=== PATIENT | female | born 1970 ===

== ENCOUNTER 2017-03-15 23:55 | Observation (INO) | payer SELFPAY, OTHER ==
[2017-03-15 23:55] VITALS: BMI 26.9
[2017-03-16 00:05] VITALS: BP 138/72; PULSE 72; RESP 18; TEMP 98; O2SAT 99
[2017-03-16] MEDS ORDERED: Iohexol 240 (50 ml) PO STA (00:32)
--- NOTE | 2017-03-16 00:40 | ED PDOC ---
HPI: Abdomen Time Seen by Provider: 03/16/17 00:08 Chief Complaint (Nursing): Abdominal Pain Chief Complaint (Provider): Abdominal pain History Per: Patient History/Exam Limitations: no limitations Onset/Duration Of Symptoms: Days (6), Waxing/Waning Current Symptoms Are (Timing): Intermittent Episodes Location Of Pain/Discomfort: Periumbilical Quality Of Discomfort: Cramping, "Pain" Associated Symptoms: Diarrhea. denies: Fever, Chills, Nausea, Vomiting Alleviating Factors: Other (Bowel movement) Last Bowel Movement: Today Additional Complaint(s): 46 y/o F with PMH including breast CA (s/p lumpectomy) presents to ED with 1 week of intermittent abdominal pain. Patient reports pain started gradually 1 week ago and has been intermittent since then. Pain is periumbilical, "cramping, " variable in intensity ranging from 0-10/10, non-radiating. Pain episodes last from seconds to minutes and have been associated with nausea and non-bloody diarrhea. Alleviated after passing BM. No aggravating factors identified. Patient denies associated fevers, chills, chest pain, vomiting, loss of appetite , dizziness or dysuria. PMD: Dr Johnson Abnormal Vaginal Bleeding: No Last Menstral Period: 2014 Past Medical History Vital Signs: Last Vital Signs Temp 98.0 F 03/16/17 00:01 Pulse 72 03/16/17 00:01 Resp 18 03/16/17 00:01 BP 138/72 03/16/17 00:01 Pulse Ox 99 03/16/17 05:03 - Medical History PMH: Denies: Chronic Kidney Disease Other PMH: Breast CA (left breast) - Family History Family History: States: Unknown Family Hx - Home Medications Home Medications: Ambulatory Orders Medication Instructions Recorded No Known Home Med 11/06/16 - Allergies Allergies/Adverse Reactions: Allergies Allergy/AdvReac Type Severity Reaction Status Date / Time No Known Allergies Allergy Verified 07/07/16 13:15 Review of Systems ROS Statement: Except As Marked, All Systems Reviewed And Found Negative Physical Exam - Reviewed Vital Signs Reviewed: Yes - Physical Exam Appears: Positive for: No Acute Distress Head Exam: Positive for: ATRAUMATIC, NORMAL INSPECTION, NORMOCEPHALIC Skin: Positive for: Normal Color, Warm, Dry Eye Exam: Positive for: Normal appearance, EOMI, PERRL ENT: Positive for: Other (Mucous membranes moist). Negative for: Pharyngeal Erythema Cardiovascular/Chest: Positive for: Regular Rate, Rhythm. Negative for: Edema, Murmur Respiratory: Positive for: Normal Breath Sounds. Negative for: Crackles, Rales , Wheezing, Respiratory Distress Pulses-Radial (L): 2+ Pulses-Radial (R): 2+ Gastrointestinal/Abdominal: Positive for: Bowel Sounds (Normal), Soft, Tenderness (Shala-umbilical tenderness), Other (Sinha's negative). Negative for : Distended, Guarding, Rebound Back: Negative for: L CVA Tenderness, R CVA Tenderness Extremity: Positive for: Capillary Refill (<2s). Negative for: Tenderness, Pedal Edema, Calf Tenderness Neurologic/Psych: Positive for: Alert, Oriented - Laboratory Results Result Diagrams: 03/16/17 00:59 03/16/17 00:59 - ECG O2 Sat by Pulse Oximetry: 99 - Progress ED Course And Treament: Patient pain free during re-assessment. CBC reveals no leukocytosis. CMP detects elevated LFTs. CT abdomen W/ IV contrast does not detect any acute findings, however possible mesenteric adenitis is present. Condition: Improved Disposition - Clinical Impression Clinical Impression: Viral gastroenteritis, Elevated LFTs - Patient ED Disposition Is Patient to be Admitted: No Counseled Patient/Family Regarding: Studies Performed, Need For Followup - Disposition Disposition: Routine/Home Disposition Time: 05:00 Condition: GOOD
[2017-03-16 01:13] LABS: BASO % 0.3 % (0.0-2.0); EOS # 0.1 K/uL (0.0-0.7); EOS % 2.2 % (0.0-4.0); HEMATOCRIT 35.7 % (34.0-47.0); LYMPH # 1.7 K/uL (1.0-4.3); LYMPH % 39.4 % (20.0-40.0); MEAN CELL VOLUME 92.4 fl (81.0-99.0); MEAN CORPUSCULAR HEMOGLOBIN 31.2 pg (27.0-31.0); MEAN CORPUSCULAR HGB CONC 33.7 g/dL (33.0-37.0); MEAN PLATELET VOLUME 8.5 fl (7.2-11.7); MONO # 0.4 K/uL (0.0-0.8); NEUT # 2.1 K/uL (1.8-7.0); NEUT % 48.1 % (50.0-75.0); NRBC % 0.1 % (0.0-0.0); WHITE BLOOD COUNT 4.4 K/uL (4.8-10.8)
[2017-03-16] MEDS ORDERED: Iohexol 240 (50 ml) ONE (01:18)
[2017-03-16 01:25] LABS: ALB/GLOB RATIO 1.1 (1.0-2.1); ALKALINE PHOSPHATASE 205 U/L (38-126); ALT/SGPT 105 U/L (9-52); AST/SGOT 64 U/L (14-36); BILIRUBIN,TOTAL 0.4 mg/dl (0.2-1.3); BLOOD UREA NITROGEN 5 mg/dl (7-17); CARBON DIOXIDE 24 mmol/L (22-30); CHLORIDE 104 mmol/L (98-107); GFR AFRICAN-AMERICAN > 60; GLUCOSE,RANDOM 360 mg/dL (65-105); LIPASE 160 U/L (23-300); POTASSIUM 3.7 MMOL/L (3.6-5.0); SODIUM 137 mmol/l (132-148)
[2017-03-16 01:44] LABS: RBC URINE < 1 /hpf (0-3); WBC URINE < 1 /hpf (0-5)
[2017-03-16 01:48] LABS: URINE BILIRUBIN NEGATIVE (NEGATIVE); URINE BLOOD NEGATIVE (NEGATIVE); URINE COLOR STRAW (YELLOW); URINE GLUCOSE (UA) >=500 mg/dL (Normal); URINE KETONE NEGATIVE (NEGATIVE); URINE LEUKOCYTE ESTERASE NEG Leu/uL (Negative); URINE PROTEIN NEGATIVE (NEGATIVE); URINE UROBILINOGEN 0.2-1.0 mg/dL (0.2-1.0)
[2017-03-16] MEDS ORDERED: Sodium Chloride 0.9% 50 ML IV ONE (03:26)
[2017-03-16] MEDS ORDERED: Iohexol 300 50 ML ONE (03:26)
--- NOTE | 2017-03-16 13:03 | CT ---
PROCEDURE: CT abdomen and pelvis dated 03/16/2017 HISTORY: Periumbilical abdominal pain COMPARISON: No prior studies available for comparison. The TECHNIQUE: Contiguous axial images of the abdomen and pelvis performed following oral and intravenous injection of approximately 95 cc Omnipaque 300 contrast material. . Coronal and Sagittal reformats generated. Radiation dose: Total exam DLP = 490.0 mGy-cm. This CT exam was performed using one or more of the following dose reduction techniques: Automated exposure control, adjustment of the mA and/or kV according to patient size, and/or use of iterative reconstruction technique. FINDINGS: LOWER THORAX: No large round/ elliptical shaped calcified granuloma left lung base measuring approximately 16 mm x 14 mm. Minimal passive atelectasis both posterior lower lung hickey. . No evidence of pleural effusion or basilar pneumothorax. Small hiatal hernia. Heart size within range of normal. No evidence of significant pericardial effusion. LIVER: Liver exhibits normal size measuring nearly 16 cm in CC dimension. Mild diffuse fatty hepatic infiltration. No obvious hepatic mass or collection. Portal and splenic veins are opacified. GALLBLADDER AND BILE DUCTS: The gallbladder is incompletely distended (likely due to nonfasting state) which may account for slight thick-walled appearance. No intraluminal gallbladder calculi. PANCREAS: Visualized portions of the pancreas grossly unremarkable. SPLEEN: Spleen exhibits normal size and attenuation pattern without mass collection or calcification. ADRENALS: No adrenal lesions. KIDNEYS AND URETERS: The kidneys demonstrate symmetric nephrograms. There is a small approximately 2.6 mm hyperdense focus seen in the upper pole collecting system that probably represents a tiny nonobstructing calculus. No evidence of hydronephrosis. BLADDER: The urinary bladder appears incompletely distended which presumably accounts for slight thick-walled appearance. The possibility of a cystitis not excluded. Correlation with urinalysis recommended REPRODUCTIVE: Increased vascularity on surrounding the uterus ; rule out pelvic congestion syndrome. APPENDIX: Normal-appearing appendix best seen on axial image number [id number] and coronal image number [id number]. . No periappendiceal inflammatory changes. BOWEL: Evaluation of the bowel is somewhat limited due to incomplete opacification. Stomach is partially distended with food debris liquid and air. Incomplete distension presumably accounts for slight thick-walled appearance. Gastritis not excluded. Visualized loops of small bowel exhibit normal contour and caliber. No evidence of acute mechanical small bowel obstruction. Large amount of stool is seen throughout the colon consistent with fecal retention/constipation. . Scattered diverticula along the sigmoid colon. No radiographic evidence to suggest acute diverticulitis however clinical correlation recommended on as the possibility of early acute diverticulitis cannot be completely excluded. PERITONEUM: Several small nonspecific lymph nodes right lower quadrant of the abdomen; rule out mesenteric adenitis. LYMPH NODES: No significant lymphadenopathy. VASCULATURE: No evidence of abdominal aortic or iliac artery aneurysms. BONES: Mild multilevel degenerative spondylosis of the lumbar and to a lesser degree lower thoracic spine OTHER FINDINGS: None. IMPRESSION: Large calcified granuloma left lingular region bordering the pleural surface. Mild fatty hepatic infiltration. Findings consistent with constipation. Scattered diverticula along the sigmoid colon. No radiographic evidence to suggest acute diverticulitis however clinical correlation recommended on as the possibility of early acute diverticulitis cannot be completely excluded. Several small nonspecific lymph nodes right lower quadrant of the abdomen; rule out mesenteric adenitis. Prominent periuterine vessels; rule out pelvic congestion syndrome. Incomplete distention of the urinary bladder may account for thick-walled appearance however cystitis not excluded. Correlation with urinalysis recommended.
== END 2017-03-16 05:08 | disposition home or self-care (01) ==
LOC: H.ER 23:55 → H.EROBSV 03-16 01:14
PROVIDERS: ADMIT Emergency Medicine; ATTEND Emergency Medicine
DX: A08.4 Viral intestinal infection, unspecified (principal); Z85.3 Personal history of malignant neoplasm of breast
CPT/HCPCS: 74177; 80053; 81003; 81025; 83690; 85025; 99282; G0378; Q9966; Q9967

== ENCOUNTER 2018-10-15 19:32 | Emergency (ER) | payer OTHER, SELFPAY ==
[2018-10-15 19:32] VITALS: BMI 25.1
[2018-10-15 19:47] VITALS: RESP 16
[2018-10-15] MEDS ORDERED: Sodium Chloride 0.9% 1,000 ML IV STA (20:25)
--- NOTE | 2018-10-15 20:44 | ED PDOC ---
HPI: Abdomen Time Seen by Provider: 10/15/18 19:44 Chief Complaint (Nursing): Abdominal Pain Chief Complaint (Provider): Abdominal Pain History Per: Patient History/Exam Limitations: no limitations Onset/Duration Of Symptoms: Days (x2) Current Symptoms Are (Timing): Still Present Additional Complaint(s): 48 year old female with medical history of breast cancer, presents to the emergency department with abdominal pain associated with 2 episodes of nonbloody diarrhea and lower abdominal pain for 2 days. She denies fever, cills, nausea, or vomiting. Patient receives chemotherapy with last session on 10/11/18. PCP: none provided Past Medical History Reviewed: Historical Data, Nursing Documentation, Vital Signs Vital Signs: Last Vital Signs Temp 97.5 F L 10/15/18 19:39 Pulse 87 10/15/18 19:39 Resp 16 10/15/18 19:39 BP 105/61 10/15/18 19:39 Pulse Ox 97 10/15/18 19:39 - Medical History PMH: Malignancy (breast) Denies: Chronic Kidney Disease - Surgical History Surgical History: Denies: No Surg Hx Other surgeries: left lumpectomy; right subclavian port - Family History Family History: States: Unknown Family Hx - Home Medications Home Medications: Ambulatory Orders Medication Instructions Recorded Dicyclomine [Bentyl] 20 mg PO Q12 PRN #20 tab 10/15/18 metFORMIN [glucOPHAGE] 500 mg PO QAM #10 tab 10/15/18 - Allergies Allergies/Adverse Reactions: Allergies Allergy/AdvReac Type Severity Reaction Status Date / Time No Known Allergies Allergy Verified 10/15/18 19:38 Review of Systems ROS Statement: Except As Marked, All Systems Reviewed And Found Negative Constitutional: Negative for: Fever, Chills Gastrointestinal: Positive for: Abdominal Pain (lower), Diarrhea (x2 NB). Negative for: Nausea, Vomiting Physical Exam - Reviewed Nursing Documentation Reviewed: Yes Vital Signs Reviewed: Yes - Physical Exam Appears: Positive for: Non-toxic, No Acute Distress Head Exam: Positive for: ATRAUMATIC, NORMAL INSPECTION, NORMOCEPHALIC Skin: Positive for: Normal Color Eye Exam: Positive for: Normal appearance ENT: Positive for: Normal ENT Inspection. Negative for: Pharyngeal Erythema Neck: Positive for: Normal Cardiovascular/Chest: Positive for: Regular Rate, Rhythm Respiratory: Positive for: Normal Breath Sounds. Negative for: Respiratory Distress Gastrointestinal/Abdominal: Positive for: Soft, Tenderness (lower, mild) Back: Positive for: Normal Inspection. Negative for: L CVA Tenderness, R CVA Tenderness Extremity: Positive for: Normal ROM (upper/lower) Neurological/Psych: Positive for: Awake, Alert, Oriented - Laboratory Results Result Diagrams: 10/15/18 22:08 10/15/18 22:08 - ECG O2 Sat by Pulse Oximetry: 97 (RA) Pulse Ox Interpretation: Normal Medical Decision Making Medical Decision Making: Initial Impression: 48 year old female with abdominal pain and diarrhea in setting of recent chemo. Initial Plan: * Labs with UA * Bentyl PO * IV fluids 2310 Labs reviewed and show no clinically significant abnormality with exception to elevated blood glucose. Spoke to Dr. Johnson on whether the elevated blood glucose is a result of chemotherapeutic agent or steroids that patient received. 2330 Patient reports improvement in symptoms and will be discharged on Metformin. Patient instructed to followup with her PMD and Dr. Johnson. Provider had discussion with patient regarding followup plan, patient verbalized understanding. Diagnosis: gastroenteritis, hyperglycemia, new onset of diabetes. Scribe Attestation: Documented by Eliz Alonzo, acting as a scribe for Antonio Wen MD. Antonio Wen MD. Provider Scribe Attestation: All medical record entries made by the Scribe were at my direction and personally dictated by me. I have reviewed the chart and agree that the record accurately reflects my personal performance of the history, physical exam, medical decision making, and the department course for this patient. I have also personally directed, reviewed, and agree with the discharge instructions and disposition. Disposition - Clinical Impression Clinical Impression: Hyperglycemia, Gastroenteritis - Patient ED Disposition Is Patient to be Admitted: No - Disposition Referrals: [facility] [Outside] [facility] [Outside] Tyrese Johnson MD [Staff Provider] - Disposition: Routine/Home Disposition Time: 23:30 Condition: STABLE Prescriptions: Dicyclomine [Bentyl] 20 mg PO Q12 PRN #20 tab PRN Reason: abdominal pain/diarrhea metFORMIN [glucOPHAGE] 500 mg PO QAM #10 tab Instructions: Diarrhea in Adolescents and Adults, Hyperglycemia, Adult, The ABCs of Diabetes, Diabetes and Diet Forms: [facility] (Hungarian) Print Language: BULGARIAN
[2018-10-15 22:18] LABS: BASO % 0.3 % (0.0-2.0); EOS % 1.1 % (0.0-4.0); HEMOGLOBIN 12.8 g/dL (12.0-16.0); LYMPH # 1.8 K/uL (1.0-4.3); LYMPH % 41.1 % (20.0-40.0); MEAN CELL VOLUME 91.8 fl (81.0-99.0); MEAN CORPUSCULAR HEMOGLOBIN 31.5 pg (27.0-31.0); MEAN CORPUSCULAR HGB CONC 34.4 g/dL (33.0-37.0); MONO # 0.4 K/uL (0.0-0.8); MONO % 9.3 % (0.0-10.0); NEUT # 2.1 K/uL (1.8-7.0); NEUT % 48.2 % (50.0-75.0); NRBC % 0.1 % (0.0-0.0); RBC 4.05 Mil/uL (3.80-5.20); RED CELL DISTRIBUTION WIDTH 12.7 % (11.5-14.5); WHITE BLOOD COUNT 4.3 K/uL (4.8-10.8)
[2018-10-15 22:19] LABS: SQUAMOUS EPITHIAL < 1 /hpf (0-5); URINE BILIRUBIN NEGATIVE (NEGATIVE); URINE BLOOD NEGATIVE (NEGATIVE); URINE CLARITY CLEAR (Clear); URINE COLOR COLORLESS (YELLOW); URINE GLUCOSE (UA) >=500 mg/dL (NEGATIVE); URINE LEUKOCYTE ESTERASE NEG Leu/uL (Negative); URINE PROTEIN NEGATIVE (NEGATIVE); URINE UROBILINOGEN 0.2-1.0 mg/dL (0.2-1.0)
[2018-10-15 22:46] LABS: ALB/GLOB RATIO 1.1 (1.0-2.1); ALBUMIN 3.8 g/dL (3.5-5.0); ALT/SGPT 47 U/L (9-52); AST/SGOT 27 U/L (14-36); BLOOD UREA NITROGEN 10 mg/dl (7-17); CALCIUM 9.1 mg/dL (8.4-10.2); GFR NON-AFRICAN AMERICAN > 60; LIPASE 173 U/L (23-300)
[2018-10-16 00:39] VITALS: BP 124/62; PULSE 67; TEMP 98.4; O2SAT 100
== END 2018-10-16 00:25 | disposition home or self-care (01) ==
LOC: H.ER 19:32
DX: K52.9 Noninfective gastroenteritis and colitis, unspecified (principal); E11.65 Type 2 diabetes mellitus with hyperglycemia; Z79.84 Long term (current) use of oral hypoglycemic drugs; Z85.3 Personal history of malignant neoplasm of breast
CPT/HCPCS: 80053; 81003; 81025; 82948; 83605; 83615; 83690; 85025; 99284; J7030

== ENCOUNTER 2018-11-11 21:30 | Emergency (ER) | payer SELFPAY ==
[2018-11-11 21:31] VITALS: BMI 25.1
[2018-11-11 22:12] VITALS: RESP 18
[2018-11-11] MEDS ORDERED: Iohexol 240 (50 ml) PO ONE (23:05)
[2018-11-11] MEDS ORDERED: Sodium Chloride 0.9% 1,000 ML IV STA (23:05)
--- NOTE | 2018-11-11 23:08 | ED PDOC ---
HPI: Abdomen Time Seen by Provider: 11/11/18 22:12 Chief Complaint (Nursing): Abdominal Pain Chief Complaint (Provider): abdominal pain History Per: Patient, Family History/Exam Limitations: no limitations Onset/Duration Of Symptoms: Hrs (3) Current Symptoms Are (Timing): Still Present Location Of Pain/Discomfort: Diffuse Associated Symptoms: Nausea, Vomiting, Diarrhea Additional Complaint(s): 48 y/o female history of stage II breast cancer presents for evaluation of diffuse abdominal pain x 3 hours. Associated vomiting x 5, diarrhea x 2. Denies fever, cough, congestion, chest pain, shortness of breath, palpitations, recent travel, sick contacts, urinary symptoms. Past Medical History Reviewed: Historical Data, Nursing Documentation, Vital Signs Vital Signs: Last Vital Signs Temp 98.9 F 11/11/18 22:10 Pulse 96 H 11/11/18 22:10 Resp 18 11/11/18 22:10 BP 119/65 11/11/18 22:10 Pulse Ox 100 11/11/18 22:10 Primary Care Provider: DoctorYvon - Medical History PMH: Malignancy (breast) Denies: Chronic Kidney Disease - Family History Family History: States: No Known Family Hx, Unknown Family Hx - Home Medications Home Medications: Ambulatory Orders Medication Instructions Recorded Dicyclomine [Bentyl] 20 mg PO Q12 PRN #20 tab 10/15/18 metFORMIN [glucOPHAGE] 500 mg PO QAM #10 tab 10/15/18 Ondansetron ODT [Zofran ODT] 4 mg PO Q8 PRN #10 odt 11/12/18 Polyethylene Glycol 3350 [Miralax] 17 gm PO DAILY PRN #7 powd.pack 11/12/18 - Allergies Allergies/Adverse Reactions: Allergies Allergy/AdvReac Type Severity Reaction Status Date / Time No Known Allergies Allergy Verified 11/11/18 22:10 Review of Systems ROS Statement: Except As Marked, All Systems Reviewed And Found Negative Gastrointestinal: Positive for: Nausea, Vomiting, Abdominal Pain, Diarrhea Physical Exam - Reviewed Nursing Documentation Reviewed: Yes Vital Signs Reviewed: Yes - Physical Exam Appears: Positive for: Well, Non-toxic, Uncomfortable Head Exam: Positive for: ATRAUMATIC, NORMAL INSPECTION, NORMOCEPHALIC Skin: Positive for: Normal Color Eye Exam: Positive for: Normal appearance ENT: Positive for: Normal ENT Inspection Cardiovascular/Chest: Positive for: Regular Rate, Rhythm Respiratory: Positive for: Normal Breath Sounds Gastrointestinal/Abdominal: Positive for: Bowel Sounds, Soft, Tenderness (epigastric, RUQ, RLQ, suprapubic) Back: Positive for: Normal Inspection Extremity: Positive for: Normal ROM Neurological/Psych: Positive for: Awake, Alert, Oriented (x3) - Laboratory Results Result Diagrams: 11/12/18 00:00 11/12/18 00:00 - ECG O2 Sat by Pulse Oximetry: 100 - Progress ED Course And Treament: -cbc -cmp -lipase -urinalysis -IV NS bolus -IV zofran -IV toradol -CT abd/pelvis CT SCAN OF THE ABDOMEN AND PELVIS WITH CONTRAST. CLINICAL HISTORY: Abdominal pain. TECHNIQUE: Multiple axial and coronal CT images were obtained through the abdomen and pelvis after administration of intravenous and oral contrast material. COMPARISON: 03/16/2017 03:48 AM EDT: CT\SD: ABD PELVIS PO IV CONTRAST COMMENTS: Bilateral basilar subsegmental atelectatic pulmonary changes. 2.3 cm calcified nodule of the lingula, benign and chronic. Diffuse thickening of the bladder suggestive of mild cystitis. Uncomplicated colonic diverticulosis. Changes of pelvic congestion syndrome. Moderate amount of fecal residue is noted in the large bowel suggestive of constipation. The liver is of uniform attenuation without mass or defect. There is no intra or extrahepatic biliary ductal dilatation. The spleen is normal. The gallbladder is within normal limits. The pancreas is of normal contour and attenuation characteristics. There is no evidence of adrenal mass. Both kidneys demonstrate prompt and equal nephrograms. The kidneys are normal in size, shape and configuration. There is no evidence of renal or ureteral mass. No renal or ureteral calculi are identified. There is no hydroureter or hydronephrosis. No evidence for appendicitis. There is no bowel wall thickening. No evidence for small or large bowel obstruction. There is no evidence of abdominal ascites or lymphadenopathy. There is no evidence of intrinsic or extrinsic bladder mass. There is no pelvic ascites or lymphadenopathy. Images of the lung bases show no evidence of pleural or parenchymal mass. There are no pleural effusions. The bony structures are free of lytic or blastic lesions. IMPRESSION: Bilateral basilar subsegmental atelectatic pulmonary changes. 2.3 cm calcified nodule of the lingula, benign and chronic. Diffuse thickening of the bladder suggestive of mild cystitis. Uncomplicated colonic diverticulosis. Changes of pelvic congestion syndrome. Moderate amount of fecal residue is noted in the large bowel suggestive of constipation On re-eval, patient resting comfortably; states pain resolved. Tolerating PO Patient educated on findings, discharged with rx Zofran, Miralax Patient aware of elevated blood sugar, states she has an appointment with her doctor on Thursday and will address it then. Rx zofran, miralax provided Return precautions given Disposition - Clinical Impression Clinical Impression: Constipation, Abdominal pain with vomiting - Patient ED Disposition Is Patient to be Admitted: No Counseled Patient/Family Regarding: Studies Performed, Diagnosis, Need For Followup, Rx Given - Disposition Disposition: Routine/Home Disposition Time: 03:50 Condition: IMPROVED Prescriptions: Ondansetron ODT [Zofran ODT] 4 mg PO Q8 PRN #10 odt PRN Reason: Nausea/Vomiting Polyethylene Glycol 3350 [Miralax] 17 gm PO DAILY PRN #7 powd.pack PRN Reason: Constipation Instructions: Constipation in Adults, Acute Abdomen (Belly Pain) Print Language: MALDIVIAN
[2018-11-11] MEDS ORDERED: Iohexol 240 (50 ml) ONE (23:45)
[2018-11-12 00:32] LABS: BASO % 0.2 % (0.0-2.0); EOS % 0.3 % (0.0-4.0); HEMOGLOBIN 13.2 g/dL (12.0-16.0); LYMPH # 1.2 K/uL (1.0-4.3); LYMPH % 13.2 % (20.0-40.0); MEAN CELL VOLUME 91.5 fl (81.0-99.0); MEAN CORPUSCULAR HEMOGLOBIN 31.2 pg (27.0-31.0); MEAN CORPUSCULAR HGB CONC 34.1 g/dL (33.0-37.0); MEAN PLATELET VOLUME 8.9 fl (7.2-11.7); MONO # 0.7 K/uL (0.0-0.8); MONO % 7.3 % (0.0-10.0); NEUT # 7.4 K/uL (1.8-7.0); NRBC % 0.1 % (0.0-0.0); RBC 4.24 Mil/uL (3.80-5.20); RED CELL DISTRIBUTION WIDTH 12.8 % (11.5-14.5); WHITE BLOOD COUNT 9.4 K/uL (4.8-10.8)
[2018-11-12 00:38] LABS: ALBUMIN 3.7 g/dL (3.5-5.0); ALT/SGPT 45 U/L (9-52); AST/SGOT 36 U/L (14-36); BLOOD UREA NITROGEN 13 mg/dl (7-17); CALCIUM 8.3 mg/dL (8.4-10.2); GFR NON-AFRICAN AMERICAN > 60; LIPASE 100 U/L (23-300)
[2018-11-12] MEDS ORDERED: Sodium Chloride 0.9% 50 ML IV ONE (01:04)
[2018-11-12] MEDS ORDERED: Iohexol 300 100 ML IJ ONE (01:04)
[2018-11-12 01:53] LABS: SQUAMOUS EPITHIAL 10 /hpf (0-5); URINE BILIRUBIN NEGATIVE (NEGATIVE); URINE BLOOD NEGATIVE (NEGATIVE); URINE CLARITY CLOUDY (Clear); URINE COLOR AMBER (YELLOW); URINE GLUCOSE (UA) >=500 mg/dL (NEGATIVE); URINE LEUKOCYTE ESTERASE NEG Leu/uL (Negative); URINE PROTEIN >=500 mg/dL (NEGATIVE); URINE UROBILINOGEN 0.2-1.0 mg/dL (0.2-1.0)
[2018-11-12 05:22] VITALS: BP 135/85; PULSE 75; TEMP 98.3; O2SAT 99
--- NOTE | 2018-11-12 11:57 | CT ---
Date of service: 11/12/2018 PROCEDURE: CT Abdomen and Pelvis with contrast HISTORY: Abdominal pain and vomiting. COMPARISON: 03/16/2017. CT abdomen and pelvis. TECHNIQUE: Intravenous contrast dose: 85 cc Omnipaque 300. Radiation dose: Total exam DLP = 227.48 mGy-cm. This CT exam was performed using one or more of the following dose reduction techniques: Automated exposure control, adjustment of the mA and/or kV according to patient size, and/or use of iterative reconstruction technique. FINDINGS: LOWER THORAX: 2 cm calcified mass in the lingula unchanged compared to prior studies. LIVER: Hepatic steatosis. No focal masses. No intrahepatic bile duct dilatation or perihepatic ascites. GALLBLADDER AND BILE DUCTS: Unremarkable. PANCREAS: Unremarkable. No gross lesion or ductal dilatation. SPLEEN: Unremarkable. ADRENALS: Unremarkable. No mass. KIDNEYS AND URETERS: No hydronephrosis. No solid mass. Incidental right upper pole calculus nonobstructing 2.6 mm. VASCULATURE: Unremarkable. No aortic aneurysm. No atherosclerotic calcification or mural plaque present. BOWEL: Constipation without fecal impaction or obstruction. APPENDIX: A normal appendix is visualized in it's entirety. PERITONEUM: Unremarkable. No free fluid. No free air. LYMPH NODES: Unremarkable. No enlarged lymph nodes. BLADDER: Bladder wall thickening is diffuse more likely related to under distension than pathologic process. REPRODUCTIVE: Enlarged, heterogeneous and anteverted uterus overall characteristics suggest fundal fibroid. Increased vascularity of the pelvis suggest pelvic congestion syndrome. Similar finding seen previously. BONES: No acute fracture. OTHER FINDINGS: None. IMPRESSION: No acute or significant findings related to/ accounting for the clinical presentation. Additional benign and/or incidental findings described above. No significant interval change compared to the prior examination(s). Concordant results (preliminary interpretation) provided by [email or web address]. Procedure Completed: 02:16. Preliminary Report: Interpreted and electronically signed: 03:23. Final Interpretation: 11:53.
== END 2018-11-12 04:00 | disposition home or self-care (01) ==
LOC: H.ER 21:30
DX: K59.00 Constipation, unspecified (principal); R10.9 Unspecified abdominal pain; R11.10 Vomiting, unspecified; Z85.3 Personal history of malignant neoplasm of breast; Z79.899 Other long term (current) drug therapy
CPT/HCPCS: 74177; 80053; 81003; 81025; 83690; 85025; 87086; 96360; 99284; J1885; J2405; J7030; Q9966; Q9967